=== PATIENT | male | born 1985 | race Caucasian/White ===

== ENCOUNTER 2016-12-31 04:11 | Emergency (ER) | payer SELFPAY ==
[~2016-12-31] VITALS: Ht 165.1 cm; Wt 68.0 kg
[2016-12-31 04:36] VITALS: BP 121/73
--- NOTE | 2016-12-31 04:40 | NUR ---
TO BED 2 AMBULATORY C/O L EAR AVULSION S/P TRIP AND FALL. PT DENIES KO. PT AAOX4 NO ACUTE DISTRESS NOTED, RESP EVEN AND UNLABORED. PENDING ER MD [facility].
--- NOTE | 2016-12-31 04:43 | NUR ---
KIA CONTRERAS AT BEDSIDE TO [facility].
[2016-12-31] MEDS ORDERED: TDAP [DIPH/PERTUSSIS/TET] 0.5 ML VIAL IM ONE ×2 (04:45→05:00)
--- NOTE | 2016-12-31 04:50 | NUR ---
EMT AT BEDSIDE FOR WOUND CARE.
--- NOTE | 2016-12-31 05:39 | NUR ---
Patient discharged to home in stable condition. Written and verbal after care instructions given. Patient verbalizes understanding of instruction.
== END 2016-12-31 05:40 | disposition home or self-care (01) ==
LOC: ER 04:14
DX: S01.311A Laceration without foreign body of right ear, initial encounter (principal); W01.0XXA Fall on same level from slipping, tripping and stumbling without subsequent striking against object, initial encounter; Y93.89 Activity, other specified; Y92.89 Other specified places as the place of occurrence of the external cause; Y99.8 Other external cause status
CPT/HCPCS: 90715; A4606; A6402; Z7610